=== PATIENT | female | born 1935 | race Caucasian/White ===

== ENCOUNTER 2017-10-26 08:10 | Emergency (ER) | payer MEDICARE, OTHER ==
[~2017-10-26] VITALS: Ht 165.1 cm; Wt 80.0 kg
[~2017-10-26 08:10] MED LIST: ASPI-1265 PO; CALC600T19; CARV25TA2 PO; CHOL100040; COLLAGEN; HYDR-3965 PO; LISI-604 PO; MAGN500C16 PO; NORT10CA2 PO; OMEG-182 PO; SPIR25TA PO; VITC500T PO
[2017-10-26 08:44] LABS: BASOPHILS % (AUTO) 0.3 % (0-1); EOSINOPHILS # (AUTO) 0.3 X10'3 (0-0.9); EOSINOPHILS % (AUTO) 2.1 % (0-6); HEMATOCRIT 39.3 % (35.0-45.0); HEMOGLOBIN 13.4 g/dl (12.0-16.0); LYMPHOCYTES # (AUTO) 2.2 X10'3 (1.1-4.8); LYMPHOCYTES % (AUTO) 18.6 % (21-51); MEAN CORPUSCULAR HEMOGLOBIN 30.9 PG (27.0-31.0); MEAN CORPUSCULAR VOLUME 90.8 FL (78-98); MEAN PLATELET VOLUME 6.5 FL (7.4-10.4); MONOCYTES # (AUTO) 0.9 X10'3 (0-0.9); MONOCYTES % (AUTO) 7.4 % (2-12); NEUTROPHILS # (AUTO) 8.4 X10'3 (1.8-7.7); NEUTROPHILS % (AUTO) 71.6 % (42-75); PLATELET COUNT 321 X10'3 (140-440); RED BLOOD COUNT 4.33 X10'6 (4.20-5.60); RED CELL DISTRIBUTION WIDTH 13.8 % (11.5-14.5); WHITE BLOOD COUNT 11.8 X10'3 (4.5-11.0)
[2017-10-26 08:54] LABS: PARTIAL THROMBOPLASTIN TIME 26 SECONDS (22-32); PROTHROMBIN TIME 9.9 SECONDS (9.0-12.0)
[2017-10-26 08:59] LABS: ALANINE AMINOTRANSFERASE 25 U/L (12-78); ALBUMIN 3.1 G/DL (3.4-5.0); ALBUMIN/GLOBULIN RATIO 0.9 (1.1-1.5); ALKALINE PHOSPHATASE 96 IU/L (46-116); ANION GAP 11 (8-16); ASPARTATE AMINO TRANSFERASE 16 U/L (10-37); BILIRUBIN,TOTAL 0.5 MG/DL (0.1-1.0); BLOOD UREA NITROGEN 21 MG/DL (7-18); BUN/CREATININE RATIO 29.2 (6.6-38.0); CALCIUM 8.9 MG/DL (8.5-10.1); CHLORIDE 106 MMOL/L (99-107); CREATININE 0.72 MG/DL (0.40-0.90); GLUCOSE 106 MG/DL (70-104); SODIUM 144 MMOL/L (135-145); TOTAL CARBON DIOXIDE 27.4 MMOL/L (24-32); TOTAL PROTEIN 6.4 G/DL (6.4-8.2); eGFR 77 ML/MIN
[2017-10-26 10:13] LABS: CLARITY,URINE CLEAR (Clear); COLOR,URINE YELLOW (Yellow); GLUCOSE, URINE NEGATIVE (Neg); KETONES,URINE NEGATIVE (Neg); LEUKOCYTE ESTERASE ,URINE NEGATIVE (Neg); NITRITES, URINE NEGATIVE (Neg); OCCULT BLOOD,URINE NEGATIVE (Neg); PROTEIN,URINE NEGATIVE (Neg); UROBILINOGEN,URINE 0.2 E.U/dL (0.2-1.0)
[2017-10-26 10:17] LABS: UA COLLECTION TYPE STRAIGHT CATH
[2017-10-26 12:42] VITALS: BP 152/81
== END 2017-10-26 12:43 | disposition home or self-care (01) ==
LOC: ER 08:10
DX: R53.1 Weakness (principal); I10 Essential (primary) hypertension; I25.10 Atherosclerotic heart disease of native coronary artery without angina pectoris; I25.2 Old myocardial infarction; Z95.1 Presence of aortocoronary bypass graft; Z79.82 Long term (current) use of aspirin
CPT/HCPCS: 36415; 71045; 80053; 81003; 84484; 85025; 85610; 85730; 87502; 87503; 99285

== ENCOUNTER 2018-05-23 09:25 | Observation (INO) | payer MEDICARE, OTHER ==
[~2018-05-23] VITALS: Ht 157.5 cm; Wt 75.0 kg
[2018-05-23] VITALS (15 sets, daily range): BP systolic 111–142; BP diastolic 31–72
[2018-05-23] MEDS ORDERED: aspirin 81mg tab.chew PO ONE (09:30)
[2018-05-23 09:49] LABS: BASOPHILS # (AUTO) 0.1 X10'3 (0-0.2); BASOPHILS % (AUTO) 0.5 % (0-1); EOSINOPHILS # (AUTO) 0.2 X10'3 (0-0.9); EOSINOPHILS % (AUTO) 1.5 % (0-6); HEMATOCRIT 41.7 % (35.0-45.0); HEMOGLOBIN 14.1 g/dl (12.0-16.0); LYMPHOCYTES # (AUTO) 1.6 X10'3 (1.1-4.8); LYMPHOCYTES % (AUTO) 14.8 % (21-51); MEAN CORPUSCULAR HEMOGLOBIN 30.6 PG (27.0-31.0); MEAN CORPUSCULAR HGB CONC 33.8 % (33.0-36.5); MEAN CORPUSCULAR VOLUME 90.6 FL (78-98); MEAN PLATELET VOLUME 6.6 FL (7.4-10.4); MONOCYTES # (AUTO) 0.7 X10'3 (0-0.9); MONOCYTES % (AUTO) 6.6 % (2-12); NEUTROPHILS # (AUTO) 8.1 X10'3 (1.8-7.7); NEUTROPHILS % (AUTO) 76.6 % (42-75); PLATELET COUNT 306 X10'3 (140-440); RED BLOOD COUNT 4.61 X10'6 (4.20-5.60); WHITE BLOOD COUNT 10.6 X10'3 (4.5-11.0)
[2018-05-23 10:00] LABS: PARTIAL THROMBOPLASTIN TIME 26 SECONDS (22-32); PROTHROMBIN TIME 10.5 SECONDS (9.0-12.0)
[2018-05-23 10:04] LABS: GLUCOSE 129 MG/DL (70-104); SODIUM 140 MMOL/L (135-145)
[2018-05-23 10:05] LABS: ALANINE AMINOTRANSFERASE 24 U/L (12-78); ALBUMIN 3.7 G/DL (3.4-5.0); ALBUMIN/GLOBULIN RATIO 1.2 (1.1-1.5); ALKALINE PHOSPHATASE 100 IU/L (46-116); ANION GAP 13 (8-16); ASPARTATE AMINO TRANSFERASE 19 U/L (10-37); BLOOD UREA NITROGEN 17 MG/DL (7-18); BUN/CREATININE RATIO 19.3 (6.6-38.0); CALCIUM 8.8 MG/DL (8.5-10.1); CHLORIDE 101 MMOL/L (99-107); CREATININE 0.88 MG/DL (0.40-0.90); POTASSIUM 3.6 MMOL/L (3.5-5.1); TOTAL CARBON DIOXIDE 25.6 MMOL/L (24-32); TOTAL PROTEIN 6.9 G/DL (6.4-8.2); eGFR 61 ML/MIN
[2018-05-23] MEDS ORDERED: magnesium 1gm/100ml D5W IVPB 100 ML IV PRN (10:55)
[2018-05-23] MEDS ORDERED: LORazepam 0.5 MG tablet PO PRN (10:55)
[2018-05-23] MEDS ORDERED: magnesium 4gm in 100ml NS 100 ML IV PRN (10:55)
[2018-05-23] MEDS ORDERED: nitroGLYCERIN 0.4mg SUBLingual tab SL PRN ×2 (10:55)
[2018-05-23] MEDS ORDERED: potassium Cl 40MEQ/NS 500ml 500 ML IV PRN ×2 (10:55)
[2018-05-23] MEDS ORDERED: magnesium hydroxide 30ml (MOM) UD suspension PO PRN (10:55)
[2018-05-23] MEDS ORDERED: metoprolol tartrate 1mg/ml inj IV PRN (10:55)
[2018-05-23] MEDS ORDERED: morphine 2 MG/ML inj. syringe IV PRN ×2 (10:55)
[2018-05-23] MEDS ORDERED: magnesium Cl slow-release 64mg tablet PO PRN (10:55)
[2018-05-23] MEDS ORDERED: acetaminophen 325mg tablet PO PRN ×2 (10:55)
[2018-05-23] MEDS ORDERED: ondansetron/PF 4mg/2ml inj IV PRN (10:55)
[2018-05-23] MEDS ORDERED: CAFFEINE CITRATE 60 MG/3 ML injection vial IV PRN (10:55)
[2018-05-23] MEDS ORDERED: mag hydrox/Alum hydrox/simeth 30ml oral suspension PO PRN (10:55)
[2018-05-23] MEDS ORDERED: potassium Cl 20 mEq SR tablet PO PRN ×2 (10:55)
[2018-05-23] MEDS ORDERED: regadenoson 0.4mg/5ml syringe IV ONE ×2 (10:55→13:44)
[2018-05-23] MEDS ORDERED: CAFFEINE CITRATE 60 MG/3 ML injection vial IV ONE (13:44)
[2018-05-23] MEDS ORDERED: CALC-1197 PO (16:54)
[2018-05-23] MEDS ORDERED: FLUO20CA39 PO (16:54)
[2018-05-23] MEDS ORDERED: MAGN400C PO (16:54)
[2018-05-23] MEDS ORDERED: LISI-642 PO (16:54)
[2018-05-23] MEDS ORDERED: SPIR1TAB4 PO (16:54)
[2018-05-23] MEDS ORDERED: ASPI-1053 PO (16:54)
[2018-05-23] MEDS ORDERED: FISH12002 PO (16:54)
[2018-05-23] MEDS ORDERED: ASCO1TAB (16:54)
[2018-05-23] MEDS ORDERED: temazepam 15mg capsule PO PRN (21:00)
[2018-05-23] MEDS ORDERED: gabapentin 300mg capsule PO ONE (21:50)
[2018-05-24 03:00] VITALS: BP 138/68
[2018-05-24 06:00] VITALS: BP 152/73
[2018-05-24 06:14] LABS: ALBUMIN 3.3 G/DL (3.4-5.0); ANION GAP 12 (8-16); BLOOD UREA NITROGEN 18 MG/DL (7-18); BUN/CREATININE RATIO 25.4 (6.6-38.0); CALCIUM 8.7 MG/DL (8.5-10.1); CHLORIDE 104 MMOL/L (99-107); CHOL/HDL RATIO 2.4 (0.00-4.99); CHOLESTEROL 158 MG/DL (0-200); CREATININE 0.71 MG/DL (0.40-0.90); GLUCOSE 93 MG/DL (70-104); HDL CHOLESTEROL 65 MG/DL (35-60); LDL CHOLESTEROL 81 MG/DL (50-100); MAGNESIUM 2.2 MG/DL (1.5-2.4); POTASSIUM 4.2 MMOL/L (3.5-5.1); SODIUM 141 MMOL/L (135-145); TOTAL CARBON DIOXIDE 24.6 MMOL/L (24-32); TRIGLYCERIDES 93 MG/DL (20-135); eGFR 79 ML/MIN
[2018-05-24 06:24] LABS: HEMATOCRIT 40.3 % (35.0-45.0); HEMOGLOBIN 13.6 g/dl (12.0-16.0); MEAN CORPUSCULAR HEMOGLOBIN 31.3 PG (27.0-31.0); MEAN CORPUSCULAR HGB CONC 33.8 % (33.0-36.5); MEAN CORPUSCULAR VOLUME 92.5 FL (78-98); MEAN PLATELET VOLUME 7.4 FL (7.4-10.4); PLATELET COUNT 299 X10'3 (140-440); RED BLOOD COUNT 4.36 X10'6 (4.20-5.60); RED CELL DISTRIBUTION WIDTH 13.9 % (11.5-14.5); WHITE BLOOD COUNT 8.1 X10'3 (4.5-11.0)
[2018-05-24] MEDS ORDERED: HYDROchlorothiazide 25mg tablet PO SCH (08:00)
[2018-05-24] MEDS ORDERED: [UNRECOGNIZED DRUG - OTHER] PO SCH (08:00)
[2018-05-24] MEDS ORDERED: K and/or MAG REPLACEMENT MC SCH (08:00)
[2018-05-24] MEDS ORDERED: enoxaparin 30mg/0.3ml syringe SQ SCH (08:00)
[2018-05-24] MEDS ORDERED: FLUoxetine 20mg capsule PO SCH (08:00)
[2018-05-24] MEDS ORDERED: lisinopril 5mg tablet PO SCH (08:00)
[2018-05-24] MEDS ORDERED: magnesium oxide 400mg tablet PO SCH (08:00)
[2018-05-24] MEDS ORDERED: aspirin 81mg tab.chew PO SCH (08:00)
[2018-05-24] MEDS ORDERED: aspirin 325mg tablet PO SCH (08:30)
[2018-05-24] MEDS ORDERED: spironolactone 25 MG tablet PO SCH (08:30)
[2018-05-24] MEDS ORDERED: clonazePAM 0.5mg tablet PO SCH (10:50)
[2018-05-24] MEDS ORDERED: CLON0.5T12 PO (10:50)
[2018-05-24 11:00] VITALS: BP 185/75
[2018-05-24] MEDS ORDERED: clonazePAM 0.5mg tablet PO ONE (11:05)
== END 2018-05-24 15:40 | disposition home or self-care (01) ==
LOC: ER 09:25 → ED HOLD 10:54 → PCU 3S 12:25
PROVIDERS: ADMIT Family Medicine; ATTEND Family Medicine
DX: R07.89 Other chest pain (principal); I25.119 Atherosclerotic heart disease of native coronary artery with unspecified angina pectoris; F41.1 Generalized anxiety disorder; I10 Essential (primary) hypertension; E78.5 Hyperlipidemia, unspecified; Z90.710 Acquired absence of both cervix and uterus; Z95.5 Presence of coronary angioplasty implant and graft; Z96.653 Presence of artificial knee joint, bilateral
CPT/HCPCS: 36415; 71045; 78452; 80048; 80053; 80061; 83735; 83880; 84443; 84484; 85025; 85027; 85610; 85730; 93005; 93017; 93306; 96372; 96374; 97116; 97162; 97530; 99285; A9500; G0378; J1650; J7030

== ENCOUNTER 2019-01-14 14:50 | Outpatient (CLI) | payer MEDICARE, OTHER ==
[~2019-01-14 14:50] MED LIST changes: +ASCO1TAB; +ASPI-1053 PO; -ASPI-1265 PO; +CALC-1197 PO; -CALC600T19; -CARV25TA2 PO; -CHOL100040; +CLON0.5T12 PO; -COLLAGEN; +FISH12002 PO; -HYDR-3965 PO; -LISI-604 PO; +LISI-642 PO; +MAGN400C PO; -MAGN500C16 PO; -NORT10CA2 PO; -OMEG-182 PO; +SPIR1TAB4 PO; -SPIR25TA PO; -VITC500T PO
[2019-01-14 16:25] LABS: BASOPHILS # (AUTO) 0.1 X10'3 (0-0.2); BASOPHILS % (AUTO) 0.5 % (0-1); EOSINOPHILS # (AUTO) 0.2 X10'3 (0-0.9); EOSINOPHILS % (AUTO) 1.9 % (0-6); LYMPHOCYTES # (AUTO) 2.7 X10'3 (1.1-4.8); LYMPHOCYTES % (AUTO) 28.3 % (21-51); MEAN CORPUSCULAR HEMOGLOBIN 30.6 PG (27.0-31.0); MEAN CORPUSCULAR HGB CONC 33.3 g/dL (33.0-36.5); MEAN PLATELET VOLUME 7.3 FL (7.4-10.4); MONOCYTES # (AUTO) 0.9 X10'3 (0-0.9); MONOCYTES % (AUTO) 9.6 % (2-12); NEUTROPHILS # (AUTO) 5.8 X10'3 (1.8-7.7); NEUTROPHILS % (AUTO) 59.7 % (42-75); PRE OP HEMATOCRIT 39.4 % (35.0-45.0); PRE OP HEMOGLOBIN 13.1 g/dL (12.0-16.0); PRE OP PLATELET COUNT 294 X10'3 (140-440); RED BLOOD COUNT 4.28 X10'6 (4.20-5.60); RED CELL DISTRIBUTION WIDTH 13.4 % (11.5-14.5)
[2019-01-14 16:42] LABS: ALBUMIN 3.5 G/DL (3.4-5.0); ALKALINE PHOSPHATASE 109 IU/L (46-116); BLOOD UREA NITROGEN 25 MG/DL (7-18); BUN/CREATININE RATIO 35.7 (6.6-38.0); CALCIUM 9.4 MG/DL (8.5-10.1); CHLORIDE 103 MMOL/L (99-107); PRE OP ALT 24 U/L (30-65); PRE OP ANION GAP 7 (8-16); PRE OP AST 19 U/L (10-37); PRE OP BILIRUB, TOTAL 0.7 MG/DL (0.0-1.0); PRE OP GLUCOSE 90 MG/DL (70-104); PRE OP POTASSIUM 3.9 MMOL/L (3.4-5.1); PRE OP SODIUM 139 MMOL/L (135-145); TOTAL CARBON DIOXIDE 28.6 MMOL/L (24-32); TOTAL PROTEIN 6.9 G/DL (6.4-8.2); eGFR 80 ML/MIN
[2019-01-14] MEDS ORDERED: UBID1CAP60 PO (17:35)
[2019-01-14] MEDS ORDERED: MULT-269 PO (17:35)
[2019-01-14] MEDS ORDERED: POTASSIUM OTC PO (17:35)
[2019-01-14] MEDS ORDERED: COLLAGEN PO (17:35)
[2019-01-14] MEDS ORDERED: MELO-100 PO (17:35)
== END 2019-01-14 23:59 | disposition home or self-care (01) ==
LOC: PRE-OP 14:50 → EDSTATUS 01-29 10:00
PROVIDERS: ATTEND Orthopaedic Surgery
DX: I50.9 Heart failure, unspecified (principal); Z00.00 Encounter for general adult medical examination without abnormal findings
CPT/HCPCS: 36415; 71046; 80053; 85025; 87070

== ENCOUNTER 2019-01-29 10:11 | Emergency (ER) | payer MEDICARE, OTHER ==
[~2019-01-29] VITALS: Ht 157.5 cm; Wt 75.0 kg
[~2019-01-29 10:11] MED LIST changes: -ASCO1TAB; -ASPI-1053 PO; -CLON0.5T12 PO; +COLLAGEN PO; +MELO-100 PO; +MULT-269 PO; +POTASSIUM OTC PO; -SPIR1TAB4 PO; +UBID1CAP60 PO
--- NOTE | 2019-01-29 11:31 | NUR ---
PT AMB WITH WALKER STEADY GAIT FROM LOBBY TO ROOM 5
[2019-01-29 11:42] LABS: CLARITY,URINE SLIGHTLY CLOUDY (Clear); COLOR,URINE YELLOW (Yellow); GLUCOSE, URINE NEGATIVE (Neg); KETONES,URINE NEGATIVE (Neg); LEUKOCYTE ESTERASE ,URINE NEGATIVE (Neg); NITRITES, URINE NEGATIVE (Neg); OCCULT BLOOD,URINE NEGATIVE (Neg); PROTEIN,URINE NEGATIVE (Neg); UROBILINOGEN,URINE 0.2 E.U/dL (0.2-1.0)
[2019-01-29 11:44] LABS: UA COLLECTION TYPE CLN CATCH MIDSTREAM
[2019-01-29 11:50] LABS: BACTERIA,URINE 1+ /HPF (Neg); MUCUS STRANDS NONE SEEN /LPF (Neg); RBC,URINE NONE SEEN /HPF (0-2); SQUAMOUS EPITHELIAL CELL,UR MODERATE /LPF (FEW); WBC,URINE 0-4 /HPF (0-4)
--- NOTE | 2019-01-29 13:01 | NUR ---
PATIENT HAS MULTIPLE MEDICAL COMPLAINTS: "BRAND NEW" FEET SWELLING, "I NEED A PAP SMEAR", "THE DOCTOR HAS TO LOOK AT MY MESH": NEED A PELVIC, "MY DOCTOR HAS NOT DONE LABS AND I DONT LIKE MY DOCTOR", "I WAS SUPPOSED TO HAVE SURGERY TODAY BUT I CANCELLED IT BECAUSE I HAVE SO MUCH WRONG WITH ME". PATIENT STATING TO RN CLINICIAN THAT "THEY ARE NOT DOING ANYTHING FOR ME" I REMINDED THE PATIENT THAT WE JUST [facility] AND SHE IS GOING TO CT SCAN. I ALSO STATED THAT THE EMERGENCY ROOM IS FOR EMERGENCY AND ROUTINE HEALTH ISSUES SUCH PAP SMEARS ARE PERFORMED BY [facility].
[2019-01-29 13:13] LABS: BASOPHILS # (AUTO) 0.1 X10'3 (0-0.2); BASOPHILS % (AUTO) 0.8 % (0-1); EOSINOPHILS # (AUTO) 0.2 X10'3 (0-0.9); EOSINOPHILS % (AUTO) 1.9 % (0-6); LYMPHOCYTES # (AUTO) 2.6 X10'3 (1.1-4.8); LYMPHOCYTES % (AUTO) 26.9 % (21-51); MEAN CORPUSCULAR HEMOGLOBIN 30.4 PG (27.0-31.0); MEAN CORPUSCULAR HGB CONC 34.1 g/dL (33.0-36.5); MEAN CORPUSCULAR VOLUME 89.1 FL (78-98); MEAN PLATELET VOLUME 6.7 FL (7.4-10.4); MONOCYTES % (AUTO) 9.8 % (2-12); NEUTROPHILS # (AUTO) 5.9 X10'3 (1.8-7.7); NEUTROPHILS % (AUTO) 60.6 % (42-75); PLATELET COUNT 343 X10'3 (140-440); RED BLOOD COUNT 4.26 X10'6 (4.20-5.60); RED CELL DISTRIBUTION WIDTH 13.3 % (11.5-14.5); WHITE BLOOD COUNT 9.7 X10'3 (4.5-11.0)
--- NOTE | 2019-01-29 13:19 | NUR ---
BACK FROM CT SCAN
[2019-01-29 13:25] LABS: ALANINE AMINOTRANSFERASE 22 U/L (12-78); ALBUMIN 3.2 G/DL (3.4-5.0); ALBUMIN/GLOBULIN RATIO 0.9 (1.1-1.5); ALKALINE PHOSPHATASE 103 IU/L (46-116); ANION GAP 6 (8-16); ASPARTATE AMINO TRANSFERASE 17 U/L (10-37); BILIRUBIN,TOTAL 0.6 MG/DL (0.1-1.0); BLOOD UREA NITROGEN 19 MG/DL (7-18); CALCIUM 8.9 MG/DL (8.5-10.1); CHLORIDE 105 MMOL/L (99-107); CREATININE 0.73 MG/DL (0.40-0.90); GLUCOSE 91 MG/DL (70-104); POTASSIUM 3.6 MMOL/L (3.5-5.1); SODIUM 137 MMOL/L (135-145); TOTAL CARBON DIOXIDE 25.8 MMOL/L (24-32); TOTAL PROTEIN 6.8 G/DL (6.4-8.2); eGFR 76 ML/MIN
--- NOTE | 2019-01-29 13:33 | NUR ---
PATIENT AMBULATED TO BATHROOM WITH HER FFW: VERY STEADY ON FEET PATIENT DRANK 120 ML APPLE JUICE, 120 ML WATER 1 CHEESE STICK AND HER OWN PEPERONI STICK
--- NOTE | 2019-01-29 14:00 | NUR ---
PATIENT AMBULATED SELF WITH FFW TO BATHROOM TO VOID AGAIN, STEADY ON FEET
[2019-01-29] MEDS ORDERED: amox tr/potassium clavulanate 875/125mg TAB PO ONE (14:10)
[2019-01-29 14:42] VITALS: BP 150/78
== END 2019-01-29 14:44 | disposition home or self-care (01) ==
LOC: ER 10:11
DX: K57.32 Diverticulitis of large intestine without perforation or abscess without bleeding (principal); R35.0 Frequency of micturition; I25.10 Atherosclerotic heart disease of native coronary artery without angina pectoris; I10 Essential (primary) hypertension; I25.2 Old myocardial infarction; M19.90 Unspecified osteoarthritis, unspecified site; Z79.899 Other long term (current) drug therapy; Z90.710 Acquired absence of both cervix and uterus; Z98.61 Coronary angioplasty status; Z98.890 Other specified postprocedural states
CPT/HCPCS: 36415; 74176; 80053; 81001; 85025; 99284

== ENCOUNTER 2019-05-18 10:53 | Inpatient (IN) | payer MEDICARE, OTHER ==
[2019-05-04 14:37] LABS: CLARITY,URINE SLIGHTLY CLOUDY (Clear); COLOR,URINE YELLOW (Yellow); GLUCOSE, URINE NEGATIVE (Neg); KETONES,URINE TRACE mg/dl (Neg); LEUKOCYTE ESTERASE ,URINE NEGATIVE (Neg); NITRITES, URINE NEGATIVE (Neg); OCCULT BLOOD,URINE NEGATIVE (Neg); PH,URINE 5.5 (4.8-8.0); PROTEIN,URINE NEGATIVE (Neg); UROBILINOGEN,URINE 0.2 E.U/dL (0.2-1.0)
[2019-05-04 14:39] LABS: BASOPHILS # (AUTO) 0.1 X10'3 (0-0.2); BASOPHILS % (AUTO) 0.6 % (0-1); EOSINOPHILS # (AUTO) 0.2 X10'3 (0-0.9); EOSINOPHILS % (AUTO) 1.8 % (0-6); LYMPHOCYTES # (AUTO) 2.7 X10'3 (1.1-4.8); LYMPHOCYTES % (AUTO) 30.1 % (21-51); MEAN CORPUSCULAR HEMOGLOBIN 30.9 PG (27.0-31.0); MEAN CORPUSCULAR HGB CONC 33.9 g/dL (33.0-36.5); MEAN CORPUSCULAR VOLUME 91.1 FL (78-98); MEAN PLATELET VOLUME 6.9 FL (7.4-10.4); MONOCYTES # (AUTO) 0.8 X10'3 (0-0.9); MONOCYTES % (AUTO) 9.5 % (2-12); NEUTROPHILS # (AUTO) 5.2 X10'3 (1.8-7.7); PRE OP HEMOGLOBIN 12.9 g/dL (12.0-16.0); PRE OP PLATELET COUNT 277 X10'3 (140-440); RED BLOOD COUNT 4.17 X10'6 (4.20-5.60); RED CELL DISTRIBUTION WIDTH 13.8 % (11.5-14.5)
[2019-05-04 14:40] LABS: UA COLLECTION TYPE CLN CATCH MIDSTREAM
[2019-05-04 14:43] LABS: HYALINE CASTS 0-3 /LPF (NEGATIVE); MUCUS STRANDS MANY /LPF (Neg); SQUAMOUS EPITHELIAL CELL,UR MANY /LPF (FEW)
[2019-05-04 14:45] LABS: BACTERIA,URINE FEW /HPF (Neg); RBC,URINE 0-2 /HPF (0-2); WBC,URINE 0-4 /HPF (0-4)
[2019-05-04 14:52] LABS: ALBUMIN 3.4 G/DL (3.4-5.0); ALBUMIN/GLOBULIN RATIO 1.1 (1.1-1.5); ALKALINE PHOSPHATASE 97 IU/L (46-116); BLOOD UREA NITROGEN 25 MG/DL (7-18); BUN/CREATININE RATIO 33.8 (6.6-38.0); CALCIUM 9.2 MG/DL (8.5-10.1); CHLORIDE 107 MMOL/L (99-107); CREATININE 0.74 MG/DL (0.40-0.90); PRE OP ALT 23 U/L (30-65); PRE OP ANION GAP 6 (8-16); PRE OP AST 18 U/L (10-37); PRE OP BILIRUB, TOTAL 0.5 MG/DL (0.0-1.0); PRE OP GLUCOSE 101 MG/DL (70-104); PRE OP POTASSIUM 3.9 MMOL/L (3.4-5.1); PRE OP SODIUM 142 MMOL/L (135-145); TOTAL CARBON DIOXIDE 28.8 MMOL/L (24-32); TOTAL PROTEIN 6.6 G/DL (6.4-8.2); eGFR 75 ML/MIN
[2019-05-18] VITALS (15 sets, daily range): BP systolic 123–150; BP diastolic 45–79
[~2019-05-18] VITALS: Ht 157.5 cm; Wt 74.0 kg
[~2019-05-18 10:53] MED LIST changes: +ACET-75 PO; -CALC-1197 PO; -COLLAGEN PO; -FISH12002 PO; +IBUP-24 PO; -MAGN400C PO; -MELO-100 PO; -MULT-269 PO; +NORT10CA81 PO; -POTASSIUM OTC PO; -UBID1CAP60 PO; +[UNRECOGNIZED DRUG - CODE] PO
[2019-05-18] MEDS ORDERED: HYDR-3964 PO (11:39)
[2019-05-18] MEDS ORDERED: ketorolac trometh. 30mg/ml inj. ONE (11:54)
[2019-05-18] MEDS ORDERED: ROPIVAcaine 0.5% (5mg/ml) 30ml vial ONE (11:54)
[2019-05-18] MEDS ORDERED: famotidine 20mg tablet PO ONE (12:15)
[2019-05-18] MEDS ORDERED: vancomycin inj 1,500 MG in normal saline 300ml IV soln IV ONE (12:15)
[2019-05-18] MEDS ORDERED: ringers solution, lacted 1,000 ML IV SCH ×2 (12:15→14:46)
[2019-05-18] MEDS ORDERED: cefazolin/dext.iso 2gm/50ml 50 ML IV ONE (12:15)
[2019-05-18] MEDS ORDERED: tranexamic acid inj. 1,000 MG in normal saline 100ml IV soln 100 ML IV ONE ×4 (12:55)
[2019-05-18] MEDS ORDERED: MIDAZolam 5mg/5ml vial ONE (13:21)
[2019-05-18] MEDS ORDERED: fentaNYL/PF 50MCG/1 ML 2ML syringe ONE (13:21)
[2019-05-18] MEDS ORDERED: sevoflurane 250ml liquid IH ONE (13:21)
[2019-05-18] MEDS ORDERED: ePHEDrine 50MG/ML INJ. ONE (14:48)
[2019-05-18] MEDS ORDERED: propofol inj 20 ML IV ONE (14:48)
[2019-05-18] MEDS ORDERED: morphine 4 MG/ML inj SYRINge IV PRN ×2 (14:50)
[2019-05-18] MEDS ORDERED: ondansetron/PF 4mg/2ml inj IV PRN ×2 (14:50→15:45)
[2019-05-18] MEDS ORDERED: proCHLORperazine 10 MG/2 ml inj IV PRN (14:50)
[2019-05-18] MEDS ORDERED: meperidine/PF 25mg/ml syringe IV PRN ×3 (14:50)
[2019-05-18] MEDS ORDERED: HYDROmorphone inj. 0.5 MG/0.5 ML DISP.SYRIN IV PRN (15:45)
[2019-05-18] MEDS ORDERED: lisinopril 5mg tablet PO PRN (15:45)
[2019-05-18] MEDS ORDERED: ibuprofen 200mg tablet PO PRN (15:45)
[2019-05-18] MEDS ORDERED: bisacodyl 10mg suppository rectal RC PRN (15:45)
[2019-05-18] MEDS ORDERED: acetaminophen 325mg tablet PO PRN ×2 (15:45)
[2019-05-18] MEDS ORDERED: diphenhydrAMINE 25mg capsule PO PRN ×2 (15:45)
--- NOTE | 2019-05-18 15:50 | NUR ---
ADMITTED TO PACU FROM OR ACCOMPANIED BY ANESTHESIA. INTIAL PHYSICAL ASSESSMENT DONE AND RECORDED. AWAKE AND RESPONSE ON ARRIVE YO PACU, REPORT RECEIVED FROM ANESTHESIA.
[2019-05-18] MEDS ORDERED: ceFAZolin 1GM/D5W- ADD-VANTAGE 50 ML IV SCH (16:00)
[2019-05-18] MEDS: ROPIVAcaine 0.2%/PF PAIN PUMP 400 ML IJ SCH (16:23)
--- NOTE | 2019-05-18 16:44 | NUR ---
PACU DISCHARGE CRITERIA MET, REPORT GIVEN TO FLOOR. DENIES PAIN OR DISCOMFORT, TRANSFERRED TO ROOM IN STABLE GOOD CONDITION.
[2019-05-18] MEDS ORDERED: tranexamic acid inj. 750 MG in normal saline 100ml IV soln 100 ML IV ONE (18:45)
[2019-05-18] MEDS ORDERED: vancomycin/NS 1 GM ADD-VANTAGE 250 ML IV SCH (20:00)
[2019-05-18] MEDS: ceFAZolin 1GM/D5W- ADD-VANTAGE 50 ML IV SCH (20:03)
[2019-05-18] MEDS: potassium cl 20mEq in 1/2 NS 1,000 ML IV SCH ×2 (20:03→23:44)
[2019-05-18] MEDS: sennosides 8.6mg tablet PO SCH (21:00)
[2019-05-18] MEDS: acetaminophen 325mg tablet PO SCH (22:19)
[2019-05-18] MEDS: nortriptyline 10mg capsule PO SCH (22:20)
[2019-05-19 02:00] VITALS: BP 130/48
[2019-05-19] MEDS: acetaminophen 325mg tablet PO SCH ×3 (02:25→14:00)
[2019-05-19] MEDS: oxyCODONE IR 5mg (immed. release) tablet PO PRN ×3 (02:25→20:30)
--- NOTE | 2019-05-19 03:30 | NUR ---
pt c/o pain continuing in shoulder after first dose of oxy. gave 2nd 5mg tablet to total 10mg dosage. repositioned for comfort, ice pack applied
--- NOTE | 2019-05-19 04:00 | NUR ---
increased OnQ to 6
[2019-05-19] MEDS: ceFAZolin 1GM/D5W- ADD-VANTAGE 50 ML IV SCH (04:28)
[2019-05-19] MEDS: HYDROmorphone 1 mg/ml syringe IV PRN ×2 (05:29→15:50)
--- NOTE | 2019-05-19 05:36 | NUR ---
dilaudid given for continued pain. patient still uncomfortable but c/o dry mouth. refused ice chips or swabs "you don't have the right ones"
[2019-05-19 06:09] LABS: BASOPHILS % (AUTO) 0.3 % (0-1); EOSINOPHILS # (AUTO) 0.2 X10'3 (0-0.9); EOSINOPHILS % (AUTO) 1.9 % (0-6); HEMATOCRIT 32.2 % (35.0-45.0); HEMOGLOBIN 11.2 g/dl (12.0-16.0); LYMPHOCYTES # (AUTO) 1.6 X10'3 (1.1-4.8); LYMPHOCYTES % (AUTO) 19.9 % (21-51); MEAN CORPUSCULAR HEMOGLOBIN 31.8 PG (27.0-31.0); MEAN CORPUSCULAR HGB CONC 34.8 g/dL (33.0-36.5); MEAN CORPUSCULAR VOLUME 91.5 FL (78-98); MEAN PLATELET VOLUME 6.8 FL (7.4-10.4); MONOCYTES # (AUTO) 0.9 X10'3 (0-0.9); MONOCYTES % (AUTO) 10.9 % (2-12); NEUTROPHILS # (AUTO) 5.4 X10'3 (1.8-7.7); PLATELET COUNT 247 X10'3 (140-440); RED BLOOD COUNT 3.52 X10'6 (4.20-5.60); RED CELL DISTRIBUTION WIDTH 13.8 % (11.5-14.5)
[2019-05-19 06:20] LABS: ANION GAP 9 (8-16); CHLORIDE 109 MMOL/L (99-107); SODIUM 142 MMOL/L (135-145); TOTAL CARBON DIOXIDE 24.3 MMOL/L (24-32)
--- NOTE | 2019-05-19 06:37 | NUR ---
reported to days. noted pt working with PT and talked with Darlin Richardson this am.
[2019-05-19 06:56] VITALS: BP 135/57
[2019-05-19] MEDS: multivitamins, therapeutics tablet PO SCH (07:31)
--- NOTE | 2019-05-19 07:38 | NUR ---
DR. SZYMANSKI AT BEDSIDE WITH PT. PT IS DISTRESSED ABOUT FEELING WEAK AND INCONTINENCE. PT ASSURED THAT SHE IS BEING CARED FOR AND BEING LISTENED TO. Addendum: 05/19/19 at 0740 by Dahiana ERAZO Amended: Links added.
[2019-05-19] MEDS: potassium cl 20mEq in 1/2 NS 1,000 ML IV SCH ×2 (07:44→15:44)
[2019-05-19 10:00] VITALS: BP 117/48
[2019-05-19] MEDS: aspirin 325mg tablet PO SCH (13:26)
[2019-05-19] MEDS: HYDROcodone/acetaminophen 5mg/325mg tablet PO PRN (13:28)
[2019-05-19 14:00] VITALS: BP 160/65
--- NOTE | 2019-05-19 14:58 | NUR ---
Joint consult: Pt seen by JAYDEN for written/verbal high protein ed; RD contact information provided. Pt agrees to cottage cheese w/ fruit at breakfasts and will receive for lunch today; dietary notified. Addendum: 05/19/19 at [address] Amended: Links added.
[2019-05-19] MEDS ORDERED: lisinopril 5mg tablet PO ONE (16:15)
[2019-05-19 18:00] VITALS: BP 144/64
[2019-05-19] MEDS: nortriptyline 10mg capsule PO SCH (20:30)
--- NOTE | 2019-05-19 20:30 | NUR ---
INCREASED ON Q TO 8
[2019-05-19] MEDS: sennosides 8.6mg tablet PO SCH (20:31)
[2019-05-19 22:00] VITALS: BP 154/71
[2019-05-20] MEDS: oxyCODONE IR 5mg (immed. release) tablet PO PRN ×4 (05:04→23:15)
[2019-05-20] MEDS: magnesium hydroxide 30ml (MOM) UD suspension PO PRN ×2 (05:06→20:51)
[2019-05-20 06:00] VITALS: BP 159/71
[2019-05-20 06:02] LABS: BASOPHILS % (AUTO) 0.3 % (0-1); EOSINOPHILS # (AUTO) 0.1 X10'3 (0-0.9); EOSINOPHILS % (AUTO) 0.5 % (0-6); HEMATOCRIT 34.2 % (35.0-45.0); HEMOGLOBIN 11.8 g/dl (12.0-16.0); LYMPHOCYTES # (AUTO) 1.9 X10'3 (1.1-4.8); MEAN CORPUSCULAR HEMOGLOBIN 30.9 PG (27.0-31.0); MEAN CORPUSCULAR HGB CONC 34.4 g/dL (33.0-36.5); MEAN CORPUSCULAR VOLUME 89.8 FL (78-98); MEAN PLATELET VOLUME 6.5 FL (7.4-10.4); MONOCYTES # (AUTO) 1.3 X10'3 (0-0.9); MONOCYTES % (AUTO) 12.3 % (2-12); NEUTROPHILS # (AUTO) 7.6 X10'3 (1.8-7.7); NEUTROPHILS % (AUTO) 69.9 % (42-75); PLATELET COUNT 252 X10'3 (140-440); RED BLOOD COUNT 3.81 X10'6 (4.20-5.60); RED CELL DISTRIBUTION WIDTH 13.7 % (11.5-14.5); WHITE BLOOD COUNT 10.9 X10'3 (4.5-11.0)
--- NOTE | 2019-05-20 06:29 | NUR ---
Problems reprioritized. Patient report given, questions answered & plan of care reviewed with TRICE He.
[2019-05-20] MEDS: lisinopril 5mg tablet PO SCH (08:23)
[2019-05-20] MEDS: aspirin 325mg tablet PO SCH (08:23)
[2019-05-20] MEDS: multivitamins, therapeutics tablet PO SCH (08:23)
[2019-05-20] MEDS: HYDROcodone/acetaminophen 5mg/325mg tablet PO PRN (08:27)
[2019-05-20 10:00] VITALS: BP 132/64
[2019-05-20] MEDS: ROPIVAcaine 0.2%/PF PAIN PUMP 400 ML IJ SCH (14:46)
[2019-05-20] MEDS ORDERED: acetaminophen 325mg tablet PO PRN (15:45)
[2019-05-20 18:00] VITALS: BP 149/65
[2019-05-20] MEDS: sennosides 8.6mg tablet PO SCH (20:51)
[2019-05-20] MEDS: nortriptyline 10mg capsule PO SCH (20:51)
[2019-05-20 21:00] VITALS: BP 126/68
--- NOTE | 2019-05-21 02:41 | NUR ---
reviewed and agree with SRN assessment
[2019-05-21] MEDS: oxyCODONE IR 5mg (immed. release) tablet PO PRN ×2 (05:00→09:16)
[2019-05-21 06:10] VITALS: BP 133/66
--- NOTE | 2019-05-21 06:32 | NUR ---
Problems reprioritized. Patient report given, questions answered & plan of care reviewed with TRICE Chaudhari.
[2019-05-21 06:53] LABS: BASOPHILS # (AUTO) 0.1 X10'3 (0-0.2); BASOPHILS % (AUTO) 0.5 % (0-1); EOSINOPHILS # (AUTO) 0.1 X10'3 (0-0.9); EOSINOPHILS % (AUTO) 0.8 % (0-6); HEMATOCRIT 33.4 % (35.0-45.0); HEMOGLOBIN 11.6 g/dl (12.0-16.0); LYMPHOCYTES # (AUTO) 1.5 X10'3 (1.1-4.8); LYMPHOCYTES % (AUTO) 12.9 % (21-51); MEAN CORPUSCULAR HGB CONC 34.7 g/dL (33.0-36.5); MEAN CORPUSCULAR VOLUME 92.4 FL (78-98); MEAN PLATELET VOLUME 7.1 FL (7.4-10.4); MONOCYTES # (AUTO) 1.5 X10'3 (0-0.9); MONOCYTES % (AUTO) 12.3 % (2-12); NEUTROPHILS # (AUTO) 8.7 X10'3 (1.8-7.7); NEUTROPHILS % (AUTO) 73.5 % (42-75); PLATELET COUNT 252 X10'3 (140-440); RED BLOOD COUNT 3.61 X10'6 (4.20-5.60); RED CELL DISTRIBUTION WIDTH 13.9 % (11.5-14.5); WHITE BLOOD COUNT 11.8 X10'3 (4.5-11.0)
[2019-05-21] MEDS: lisinopril 5mg tablet PO SCH (09:16)
[2019-05-21] MEDS: multivitamins, therapeutics tablet PO SCH (09:16)
[2019-05-21] MEDS: aspirin 325mg tablet PO SCH (09:16)
[2019-05-21 10:00] VITALS: BP 142/59
--- NOTE | 2019-05-21 11:33 | NUR ---
Patient report given to Ronald CARNES at [facility].
--- NOTE | 2019-05-21 11:40 | NUR ---
Patient discharged to [facility] at this time. she forgot her home bp cuff and facial cream in med room with name on it.
== END 2019-05-21 11:40 | DRG 483 ==
LOC: PAS IN 10:53 → ORTHO 4S 14:00 → EDSTATUS 14:15
PROVIDERS: ADMIT Orthopaedic Surgery; ATTEND Orthopaedic Surgery
PROC: 3E0T3BZ Introduction of Anesthetic Agent into Peripheral Nerves and Plexi, Percutaneous Approach (ICD-10-PCS; 2019-05-18)
PROC: 0RRK00Z Replacement of Left Shoulder Joint with Reverse Ball and Socket Synthetic Substitute, Open Approach (ICD-10-PCS; principal; 2019-05-18 13:21)
DX: M19.012 Primary osteoarthritis, left shoulder (principal); M75.122 Complete rotator cuff tear or rupture of left shoulder, not specified as traumatic; M75.22 Bicipital tendinitis, left shoulder; I25.10 Atherosclerotic heart disease of native coronary artery without angina pectoris; Z96.653 Presence of artificial knee joint, bilateral; F43.21 Adjustment disorder with depressed mood; F32.9 Major depressive disorder, single episode, unspecified; I10 Essential (primary) hypertension; Z95.5 Presence of coronary angioplasty implant and graft; Z98.1 Arthrodesis status; I25.2 Old myocardial infarction; Z82.49 Family history of ischemic heart disease and other diseases of the circulatory system; Z80.9 Family history of malignant neoplasm, unspecified; Z87.891 Personal history of nicotine dependence
CPT/HCPCS: 36415; 80051; 80053; 81001; 82948; 85025; 87081; 97116; 97161; 97530; A4565; A4618; A7000; C1776; G0378; J0690; J1170; J1885; J2250; J2704; J2795; J3010; J3370; J3480; J7120

== ENCOUNTER 2019-09-28 08:42 | Emergency (ER) | payer MEDICARE, OTHER ==
[~2019-09-28] VITALS: Ht 157.5 cm; Wt 70.0 kg
[~2019-09-28 08:42] MED LIST changes: +HYDR-3964 PO
[2019-09-28] MEDS ORDERED: ketorolac trometh inj. 60 MG/2 ML VIAL IM ONE (09:45)
[2019-09-28] MEDS ORDERED: acetaminophen 325mg tablet PO ONE (09:45)
[2019-09-28] MEDS ORDERED: LIDOcaine 5% patch TP ONE (09:45)
[2019-09-28] MEDS ORDERED: HYDR-3965 PO (10:49)
[2019-09-28] MEDS ORDERED: LIDO700A32 TOP (10:49)
[2019-09-28 12:20] VITALS: BP 114/62
== END 2019-09-28 12:27 | disposition home or self-care (01) ==
LOC: ER 08:42
DX: M54.5 Low back pain (principal); I25.10 Atherosclerotic heart disease of native coronary artery without angina pectoris; I10 Essential (primary) hypertension; I25.2 Old myocardial infarction; G89.29 Other chronic pain; F32.9 Major depressive disorder, single episode, unspecified; Z90.710 Acquired absence of both cervix and uterus; Z98.61 Coronary angioplasty status; Z98.890 Other specified postprocedural states; Z60.2 Problems related to living alone; Z79.899 Other long term (current) drug therapy
CPT/HCPCS: 72100; 96372; 99284; J1885

== ENCOUNTER 2020-08-22 15:33 | Emergency (ER) | payer MEDICARE, OTHER ==
[~2020-08-22] VITALS: Ht 157.5 cm; Wt 70.5 kg
[~2020-08-22 15:33] MED LIST changes: -ACET-75 PO; +ASCO500C17 PO; +ASPI-611 PO; +CALC-1200 PO; +CHOL10006 PO; -HYDR-3964 PO; -IBUP-24 PO; +LISI-604 PO; -LISI-642 PO; +MAGN400C PO; +MELO-102 PO; +OMEG-79 PO; +SPIR25TA5 PO; -[UNRECOGNIZED DRUG - CODE] PO
[2020-08-22 17:05] LABS: CLARITY,URINE CLOUDY (Clear); COLOR,URINE YELLOW (Yellow); GLUCOSE, URINE NEGATIVE (Neg); KETONES,URINE 15 mg/dl (Neg); LEUKOCYTE ESTERASE ,URINE TRACE (Neg); NITRITES, URINE POSITIVE (Neg); OCCULT BLOOD,URINE TRACE-LYSED (Neg); PH,URINE 5.5 (4.8-8.0); PROTEIN,URINE TRACE mg/dl (Neg); UROBILINOGEN,URINE 0.2 E.U/dL (0.2-1.0)
[2020-08-22 17:13] LABS: MUCUS STRANDS MANY /LPF (Neg); SQUAMOUS EPITHELIAL CELL,UR MANY /LPF (FEW); UA COLLECTION TYPE CLN CATCH MIDSTREAM
[2020-08-22 17:14] LABS: HYALINE CASTS 0-3 /LPF (NEGATIVE)
[2020-08-22 17:15] LABS: BACTERIA,URINE 4+ /HPF (Neg)
[2020-08-22 17:16] LABS: RBC,URINE 0-2 /HPF (0-2); WBC,URINE 30-50 /HPF (0-4)
[2020-08-22 17:17] LABS: TRANSITIONAL EPI CELLS,URINE MODERATE /HPF
--- NOTE | 2020-08-22 19:14 | NUR ---
fortino, pt caregiver and friend. pt requested to have friend updated. [phone]
--- NOTE | 2020-08-22 19:33 | NUR ---
yoly fraire notified that pt is taking zpack, and is not being treated for uti at this time.
[2020-08-22] MEDS ORDERED: CefTRIAXone/D5W-Rocephin 1gm 50 ML IV ONE (20:05)
[2020-08-22] MEDS ORDERED: normal saline 1000ML IV soln IVB ONE (20:05)
[2020-08-22 20:48] LABS: BASOPHILS % (AUTO) 0.7 % (0-1); EOSINOPHILS % (AUTO) 0.1 % (0-6); HEMOGLOBIN 13.8 g/dl (12.0-16.0); LYMPHOCYTES # (AUTO) 1.5 X10'3 (1.1-4.8); LYMPHOCYTES % (AUTO) 29.6 % (21-51); MEAN CORPUSCULAR HEMOGLOBIN 29.9 PG (27.0-31.0); MEAN CORPUSCULAR HGB CONC 32.9 g/dL (33.0-36.5); MEAN CORPUSCULAR VOLUME 90.9 FL (78-98); MEAN PLATELET VOLUME 6.6 FL (7.4-10.4); MONOCYTES # (AUTO) 0.7 X10'3 (0-0.9); MONOCYTES % (AUTO) 13.7 % (2-12); NEUTROPHILS # (AUTO) 2.7 X10'3 (1.8-7.7); NEUTROPHILS % (AUTO) 55.9 % (42-75); PLATELET COUNT 187 X10'3 (140-440); RED BLOOD COUNT 4.62 X10'6 (4.20-5.60); RED CELL DISTRIBUTION WIDTH 13.6 % (11.5-14.5); WHITE BLOOD COUNT 4.9 X10'3 (4.5-11.0)
[2020-08-22 21:03] LABS: ALANINE AMINOTRANSFERASE 32 U/L (12-78); ALBUMIN 3.3 G/DL (3.4-5.0); ALBUMIN/GLOBULIN RATIO 0.9 (1.1-1.5); ALKALINE PHOSPHATASE 98 IU/L (46-116); ANION GAP 9 (8-16); ASPARTATE AMINO TRANSFERASE 41 U/L (10-37); BILIRUBIN,TOTAL 0.9 MG/DL (0.1-1.0); BLOOD UREA NITROGEN 15 MG/DL (7-18); BUN/CREATININE RATIO 18.1 (6.6-38.0); CALCIUM 8.4 MG/DL (8.5-10.1); CHLORIDE 103 MMOL/L (99-107); CREATININE 0.83 MG/DL (0.40-0.90); GLUCOSE 98 MG/DL (70-104); POTASSIUM 3.7 MMOL/L (3.5-5.1); SODIUM 141 MMOL/L (135-145); TOTAL CARBON DIOXIDE 28.6 MMOL/L (24-32); TOTAL PROTEIN 7.1 G/DL (6.4-8.2); eGFR 65 ML/MIN
[2020-08-22 22:57] VITALS: BP 131/67
[2020-08-22] MEDS ORDERED: CEPH-572 PO (23:02)
== END 2020-08-23 00:26 | disposition home or self-care (01) ==
LOC: ER 15:33
DX: N39.0 Urinary tract infection, site not specified (principal); Z20.828 Contact with and (suspected) exposure to other viral communicable diseases; R20.0 Anesthesia of skin; R53.1 Weakness; M79.604 Pain in right leg; I25.10 Atherosclerotic heart disease of native coronary artery without angina pectoris; I10 Essential (primary) hypertension; I25.2 Old myocardial infarction; G89.29 Other chronic pain; F32.9 Major depressive disorder, single episode, unspecified; Z90.710 Acquired absence of both cervix and uterus; Z98.890 Other specified postprocedural states; Z95.0 Presence of cardiac pacemaker; Z60.2 Problems related to living alone; Z79.82 Long term (current) use of aspirin; Z79.2 Long term (current) use of antibiotics; Z79.899 Other long term (current) drug therapy
CPT/HCPCS: 36415; 72131; 80053; 81001; 85025; 96365; 99284; J0696; J7030

== ENCOUNTER 2022-05-08 12:41 | Emergency (ER) | payer MEDICARE, OTHER ==
[~2022-05-08] VITALS: Ht 154.9 cm; Wt 79.5 kg
[~2022-05-08 12:41] MED LIST changes: -LISI-604 PO; +LISI5TAB22 PO
[2022-05-08 13:21] VITALS: BP 168/82
[2022-05-08] MEDS ORDERED: fluconazole 100mg tablet PO ONE (15:30)
[2022-05-08] MEDS ORDERED: NYST1000 PO (15:32)
[2022-05-08] MEDS ORDERED: LIDO20SO16 PO (15:32)
--- NOTE | 2022-05-08 16:02 | NUR ---
PO MED GIVEN
--- NOTE | 2022-05-08 16:33 | NUR ---
PT HAS BEEN DC AND [facility] CALLED FOR TRANSPORTATION. PER BUILDING MAINTENANCE WORKER THE FAC[employer]IES PLANT WORKER HAS GONE FOR THE DAY AND RECOMMED THAT PT'S POA BE CALLED TO ADVISED HOW TO TRANSPORT PT BACK TO [facility]. POA; KASSI MCKINLEY, WAS CALLED AND ADVISED TO SEND PT BACK TO HER FACILITY VIA [facility]. [facility] CALLED WITH AN ETA OF 30 MIN
== END 2022-05-08 16:04 | disposition home or self-care (01) ==
LOC: ER 12:41
DX: B37.0 Candidal stomatitis (principal); I10 Essential (primary) hypertension; K21.9 Gastro-esophageal reflux disease without esophagitis; G89.29 Other chronic pain; M54.50 Low back pain, unspecified; Z90.710 Acquired absence of both cervix and uterus
CPT/HCPCS: 99283

== ENCOUNTER 2022-10-23 11:01 | Emergency (ER) | payer MEDICARE ==
[~2022-10-23] VITALS: Ht 154.9 cm; Wt 75.0 kg
[~2022-10-23 11:01] MED LIST changes: +LIDO20SO16 PO
[2022-10-23 11:02] VITALS: BP 157/77
[2022-10-23 12:50] LABS: BASOPHILS % (AUTO) 0.4 % (0-1); EOSINOPHILS # (AUTO) 0.1 X10'3 (0-0.9); EOSINOPHILS % (AUTO) 1.4 % (0-6); HEMATOCRIT 40.1 % (35.0-45.0); HEMOGLOBIN 13.1 g/dl (12.0-16.0); LYMPHOCYTES # (AUTO) 1.9 X10'3 (1.1-4.8); LYMPHOCYTES % (AUTO) 18.2 % (21-51); MEAN CORPUSCULAR HEMOGLOBIN 29.1 PG (27.0-31.0); MEAN CORPUSCULAR HGB CONC 32.8 g/dL (33.0-36.5); MEAN CORPUSCULAR VOLUME 88.6 FL (78-98); MEAN PLATELET VOLUME 6.8 FL (7.4-10.4); MONOCYTES # (AUTO) 0.9 X10'3 (0-0.9); NEUTROPHILS # (AUTO) 7.4 X10'3 (1.8-7.7); PLATELET COUNT 305 X10'3 (140-440); RED BLOOD COUNT 4.52 X10'6 (4.20-5.60); RED CELL DISTRIBUTION WIDTH 13.8 % (11.5-14.5); WHITE BLOOD COUNT 10.5 X10'3 (4.5-11.0)
[2022-10-23 13:12] LABS: ALANINE AMINOTRANSFERASE 18 U/L (12-78); ALBUMIN 3.6 G/DL (3.4-5.0); ALKALINE PHOSPHATASE 126 IU/L (46-116); ANION GAP 7 (8-16); ASPARTATE AMINO TRANSFERASE 23 U/L (10-37); BILIRUBIN,TOTAL 0.8 MG/DL (0.1-1.0); BLOOD UREA NITROGEN 16 MG/DL (7-18); BUN/CREATININE RATIO 19.8 (6.6-38.0); CALCIUM 9.2 MG/DL (8.5-10.1); CHLORIDE 105 MMOL/L (99-107); CREATININE 0.81 MG/DL (0.40-0.90); GLUCOSE 95 MG/DL (70-104); POTASSIUM 4.2 MMOL/L (3.5-5.1); SODIUM 141 MMOL/L (135-145); TOTAL CARBON DIOXIDE 29.5 MMOL/L (24-32); TOTAL PROTEIN 7.3 G/DL (6.4-8.2); eGFR 67 ML/MIN
[2022-10-23] MEDS: normal saline 500ml IV soln 500 ML IV SCH ×2 (13:18→14:25)
[2022-10-23] MEDS ORDERED: iohexol 300mg/ml 100ml inj. ONE (13:26)
[2022-10-23] MEDS ORDERED: NYST1000 PO (14:57)
[2022-10-23] MEDS ORDERED: nystatin 500,000 unit/5ML UD oral suspension PO ONE (21:00)
== END 2022-10-23 15:39 | disposition home or self-care (01) ==
LOC: ER 11:01
DX: B37.0 Candidal stomatitis (principal); J02.9 Acute pharyngitis, unspecified; R05.9 Cough, unspecified; R09.89 Other specified symptoms and signs involving the circulatory and respiratory systems; I25.10 Atherosclerotic heart disease of native coronary artery without angina pectoris; I10 Essential (primary) hypertension; I25.2 Old myocardial infarction; K21.9 Gastro-esophageal reflux disease without esophagitis; R22.1 Localized swelling, mass and lump, neck; G89.29 Other chronic pain; F32.9 Major depressive disorder, single episode, unspecified; Z90.710 Acquired absence of both cervix and uterus; Z98.890 Other specified postprocedural states; Z60.2 Problems related to living alone; Z79.82 Long term (current) use of aspirin; Z79.899 Other long term (current) drug therapy
CPT/HCPCS: 36415; 70491; 80053; 85025; 99285; J3490; J7030; J7040; Q9967

== ENCOUNTER 2023-05-26 10:57 | Emergency (ER) | payer MEDICARE ==
[~2023-05-26] VITALS: Ht 157.5 cm; Wt 68.6 kg
[2023-05-26 10:59] VITALS: BP 133/63; PULSE 73; RESP 16; TEMP 98.2; O2SAT 98
[2023-05-26] MEDS ORDERED: AZIT-164 PO (14:22)
[2023-05-26] MEDS ORDERED: DEC4T PO (14:22)
[2023-05-26] MEDS ORDERED: NYST15CR37 TOP (14:22)
== END 2023-05-26 14:35 | disposition home or self-care (01) ==
LOC: ER 10:57
DX: J40 Bronchitis, not specified as acute or chronic (principal); B37.2 Candidiasis of skin and nail; I11.0 Hypertensive heart disease with heart failure; K21.9 Gastro-esophageal reflux disease without esophagitis; G89.29 Other chronic pain; M54.9 Dorsalgia, unspecified; F32.A Depression, unspecified
CPT/HCPCS: 99283; 99284